=== PATIENT | male | born 1970 | race Two or more races ===

== ENCOUNTER → 2020-10-12 | Day surgery (SDC) | payer OTHER | END | disposition home or self-care (01) | LOC: ADM 10-05 14:00 → CIR.AMB 06:59 | PROVIDERS: ATTEND Colon & Rectal Surgery | DX: K51.813 Other ulcerative colitis with fistula (principal); K51.811 Other ulcerative colitis with rectal bleeding; K63.5 Polyp of colon; K64.1 Second degree hemorrhoids; Z20.822 Contact with and (suspected) exposure to COVID-19 ==

== ENCOUNTER 2020-10-25 12:00 | Inpatient (IN) | payer OTHER ==
[~2020-10-25] VITALS: Ht 165.1 cm; Wt 117.0 kg
[2020-10-25] MEDS ORDERED: ENTYVIO300 MG IV (16:03)
[2020-10-25] MEDS ORDERED: HUMULIN N100 UNIT/2 IM (16:04)
== END 2020-11-02 16:53 | disposition home or self-care (01) | DRG 330 ==
LOC: O/R 10-30 05:42 → SURH 10-30 07:00
PROVIDERS: ADMIT Colon & Rectal Surgery; ATTEND Colon & Rectal Surgery
PROC: 0WQF4ZZ Repair Abdominal Wall, Percutaneous Endoscopic Approach (ICD-10-PCS; 2020-10-30)
PROC: 0DSB4ZZ Reposition Ileum, Percutaneous Endoscopic Approach (ICD-10-PCS; principal; 2020-10-30 07:00)
DX: Z43.2 Encounter for attention to ileostomy (principal); K43.0 Incisional hernia with obstruction, without gangrene; K50.10 Crohn's disease of large intestine without complications; E11.9 Type 2 diabetes mellitus without complications

== ENCOUNTER 2020-11-21 17:43 | Emergency (ER) | payer OTHER ==
[~2020-11-21] VITALS: Ht 165.1 cm; Wt 113.4 kg
[~2020-11-21 17:43] MED LIST: ENTYVIO300 MG IV; HUMULIN N100 UNIT/2 IM
== END 2020-11-22 12:23 | disposition home or self-care (01) ==
LOC: ER 17:43
DX: N20.0 Calculus of kidney (principal); K63.89 Other specified diseases of intestine; K76.0 Fatty (change of) liver, not elsewhere classified; R14.0 Abdominal distension (gaseous); R11.2 Nausea with vomiting, unspecified; Z03.818 Encounter for observation for suspected exposure to other biological agents ruled out

== ENCOUNTER 2020-12-30 22:33 | Inpatient (IN) | payer OTHER ==
[~2020-12-30] VITALS: Ht 165.1 cm; Wt 97.1 kg
[2020-12-30] MEDS ORDERED: [UNRECOGNIZED DRUG - OTHER] (22:44)
--- NOTE | 2020-12-30 22:45 | NUR ---
PTE SE RECIBE POR ABDOMINAL PAIN REFIERE PARAMEDICO Y PTE.
--- NOTE | 2020-12-31 01:06 | NUR ---
PTE EVALUADO POR EL DR LEE QUIEN ORDENA EL [place]. SE ORIENTA SOBRE EL [place] ORDENADO, LO CUAL REFIERE ENTENDER, SE REALIZAN PRUEBAS DE LABORATORIO Y SE ADMINISTRAN MEDICAMENTOS GILBERTO ORDEN MEDICA Y SIGUIENDO MEDIDAS ASEPTICAS Y ESTERILES. PTE LLEGA CANALIZADO X2 EN BRAZO Y MANO LT, PATENTE Y SKYLAR DE EDEMA O ERITEMA. PTE CON HERIDA EN AREA ABDOMINAL, SE PROVEE CUIDADO LOCAL POR MR Karma DIAS, REFIERE PTE CON OLOR FETIDO Y DRENANDO LIQUIDO PURULENTO. MR Karma DIAS ASISTE EN HIGIENE PARCIAL. SE MANTIENE BAJO OBSERVACION UBICADO EN YESSENIA NIVEL MAS BAJO, GARDINER DE IDENTIFICACION Y BARANDAS ELEVADAS POR PRECAUCION.
--- NOTE | 2020-12-31 07:12 | NUR ---
PACIENTE ALERTA Y ORIENTADO EN KATERINE [place] ESFERAS, PRESENTA BUEN PATRON RESPIRATORIO Y SKYLAR DE DOLOR. CANALIZADO EN BRAZO LT X 2, AMBAS VENOPUNCIONES PATENTES Y LIBRES DE S/S DE FLEBITIS E INFILTRACION, RECIBIENDO 0.9% NSS A 150 ML/HR. PACIENTE POSTQUIRURGICO DE COLON CON HX DE CHRON. PENDIENTE RE EVALUACION MEDICA.
[2021-01-01] MEDS ORDERED: RESTORIL15 MG (13:10)
== END 2021-01-09 15:26 | disposition home or self-care (01) | DRG 921 ==
LOC: ER 22:33 → SEC-K 12-31 12:16 → SURG 12-31 14:14
PROVIDERS: ADMIT Colon & Rectal Surgery; ATTEND Colon & Rectal Surgery
PROC: 30233N1 Transfusion of Nonautologous Red Blood Cells into Peripheral Vein, Percutaneous Approach (ICD-10-PCS; principal; 2021-01-02)
PROC: 2W13X6Z Compression of Abdominal Wall using Pressure Dressing (ICD-10-PCS; 2021-01-02)
PROC: 02HV33Z Insertion of Infusion Device into Superior Vena Cava, Percutaneous Approach (ICD-10-PCS; 2021-01-02)
DX: T81.31XA Disruption of external operation (surgical) wound, not elsewhere classified, initial encounter (principal); D64.9 Anemia, unspecified; Z95.828 Presence of other vascular implants and grafts; Y83.8 Other surgical procedures as the cause of abnormal reaction of the patient, or of later complication, without mention of misadventure at the time of the procedure